=== PATIENT | female | born 2005 | race Two or more races ===

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

== ENCOUNTER 2024-01-16 02:05 | Emergency (ER) | payer OTHER, SELFPAY ==
--- NOTE | ~2024-01-16 | CT_ITS ---
EXAMINATION: CT HEAD WITHOUT CONTRAST CLINICAL INFORMATION: Headache COMPARISON: None available. TECHNIQUE: Contiguous axial imaging was performed from the skull base to vertex without intravenous administration of contrast. This CT examination was performed using dose optimization techniques as appropriate, variously including the following: *Automated exposure control *Adjustment of mA and/or kV according to patient size (this includes techniques or standardized protocols for targeted exams where dose is matched to indication/reason for exam; i.e. extremities or head) *Use of iterative reconstruction technique DLP: 622 mGy-cm FINDINGS: No intracranial hemorrhage, tumors or acute infarcts identified. Ventricles and sulci are normal in size and configuration. No focal parenchymal lesions of the brain or abnormal extra-axial fluid collections identified. The orbits and globes are normal in appearance. No extrarenal soft tissue inflammatory changes. No significant opacification of the visualized paranasal sinuses, mastoid air cells and middle ear cavities. CT/CT head/brain wo IV con IMPRESSION: Normal unenhanced CT of the head. Electronically signed by: Kyle Bruce MD 01/16/2024 06:16 AM PABLO
[2024-01-16 02:18] VITALS: BP 127/89; PULSE 78; RESP 20; TEMP 36.4; O2SAT 98; BMI 26.4
[2024-01-16 03:24] VITALS: BP 135/89; PULSE 86; RESP 14; TEMP 36.8; O2SAT 99
[2024-01-16] MEDS: Acetaminophen 325 MG TABLET 650 MG PO ×2 (03:32→06:44)
[2024-01-16] MEDS: Ondansetron ODT 4 MG TAB.RAPDIS TRANSLINGU (03:34)
[2024-01-16 04:33] VITALS: BP 120/63; PULSE 71; RESP 18; TEMP 36.7; O2SAT 99
--- NOTE | 2024-01-16 04:48 | ED.HA ---
HPI - Headache General Chief Complaint: Headache Stated Complaint: migraine Time Seen by Provider: 01/16/24 04:41 Source: patient Mode of arrival: ambulatory Limitations: no limitations History of Present Illness ED Provider: DR. Lloyd HPI Narrative: 18-year-old female history of migraine came in for 10 hours history of headache that started yesterday, headache is associated with nausea, no vomiting, no photophobia, no neck stiffness, no fever, no chills, patient while in the emergency department already started to feel improvement of her headache. No weakness, no numbness, no blurry vision. Related Data Previous Rx's ?Medication ?Instructions ?Recorded doxylamine succinate 25 mg tablet 25 mg PO BEDTIME PRN sleep #30 tabs 09/18/22 (Unisom (doxylamine)) vitamin with calcium 1 tab PO DAILY #90 tabs 09/18/22 no.72-iron 27 mg-folic acid 1 mg tablet ( Vitamins Plus Low Iron) pyridoxine (vitamin B6) 25 mg 25 mg PO TID #90 tabs 09/18/22 tablet metoclopramide HCl 5 mg tablet 5 mg PO QIDACHS PRN nausea and 10/17/22 (Reglan) vomiting #30 tabs Allergies Allergy/AdvReac Type Severity Reaction Status Date / Time Seasonal Allergies Allergy Intermediate Itchy Eyes Verified 01/16/24 02:21 Review of Systems Review of Systems: All other systems are reviewed and are negative Constitutional: Reports as per HPI and Reports no additional constitutional complaints Eyes: Reports as per HPI and Reports no additional eye complaints Reports system reviewed and no additional complaints, except as documented Cardiovascular: Reports as per HPI and Reports no additional cardiovascular complaints Respiratory: Reports as per HPI and Reports no additional respiratory complaints Gastrointestinal: Reports as per HPI and Reports no additional gastrointestinal complaints Genitourinary: Reports no additional female genitourinary complaints Musculoskeletal: Reports no additional musculoskeletal complaints Skin/Breast: Reports system reviewed and no additional complaints, except as docu Psychiatric: Reports no additional psychiatric complaints Endocrine: Reports no additional endocrine complaints Hematologic/Lymphatic: Reports no additional hematologic/lymphatic complaints Allergic/Immunologic: Reports no additional allergic/immunologic complaints Reports system reviewed and no additional complaints, except as documented and Reports Abnormal speech present PMFSH Past Medical History Medical History Adolescent , incidental Surgical History Hx of tonsillectomy Family History Family History Mother DM (diabetes mellitus) Father HTN (hypertension) Asthma Sister History of prediabetes Brother No problems noted. Son No problems noted. 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 Alcohol intake: never Patient Tobacco Use Status: Never used Tobacco Smoked in Last 30 Days: No Use of substances other than those prescribed or required for medical reasons: No Advance Directives: No Advance Directives Information Provided: No Do you have a plan to hurt others: No Plan Patient : No Current occupational status: unemployed Physical Exam Vital Signs: Vital Signs: Last Vital Signs Temp 98.2 F 01/16/24 06:24 Pulse 78 01/16/24 06:24 Resp 18 01/16/24 06:24 BP 108/57 L 01/16/24 06:24 Pulse Ox 99 01/16/24 06:24 O2 Del Method Room Air 01/16/24 06:24 BMI result Body Mass Index 26.4 Vital signs have been reviewed and appear to be correct. Blood pressure elevated. Heart rate normal. Respiratory rate normal. Temperature normal. Oxygen saturation normal. Appearance: Alert. Oriented X3. No acute distress. Head: Normal external exam. Normocephalic. Atraumatic. No Solomon signs noted. No raccoon eyes noted Eyes: PERRLA. EOMI. Conjunctiva and sclera normal. Eyelids normal. ENT: TM's Normal. Pharynx normal. Uvula midline. Moist mucous membranes. No trismus noted. No drooling noted. No muffled voice noted. Neck: Normal inspection. Neck supple. FROM. No adenopathy. Thyroid Normal. No meningeal signs. No neck mass noted. CVS: Normal heart rate and rhythm. Heart sound normal. No murmurs noted. Pulses normal throughout. Respiratory: No respiratory distress. Painless inspiration. Breath sounds normal. No wheezes/rales/rhonchi noted. Chest nontender. No accessory muscle usage noted or decreased air movement noted. Abdomen: Soft and nontender. Bowel sounds normal in all 4 quadrants. No distention noted. No organomegaly noted. No visible injury noted. Back: No CVA tenderness. Full range of motion noted. Skin: Skin warm and dry. Normal skin color. Normal skin turgor. No rashes/lesions/lacerations noted. Extremities: No lower extremity edema. Extremities exhibit normal range of motion. Extremities nontender. Neuro: Mental status: Normal attention, orientation, memory, and affect. Cranial nerves: Pupils are equal, round and reactive to light, EOMI, visual patterson are fall, face is symmetric, facial sensations are normal. Motor examination normal muscle tone, strength to 4 extremities. DTR are +2, planter's are flexor. Sensory exam; normal coordination, no ataxia, gait stable. Cerebellar exam: Spqlvi-wz-sdlu and suqc-zu-mzkh is normal. Extrapyramidal system: No tremors, no rigidity with normal facial expressions. Pronator drift not present Course Reevaluation(s) Reevaluation #1: headache has improved now headache is 1/10, patient received IV fluids/Benadryl /Zofran in the ED and feels significantly better. Normal neuro exam, head CT is unremarkable. UA is showing UTI patient has no dysuria, no frequency urination, was instructed to drink plenty of fluids Time: 06:58 Medications Administered Discontinued Medications Generic Name Dose Route Start Last Admin Trade Name Freq PRN Reason Stop Dose Admin Acetaminophen 650 mg 01/16/24 03:28 01/16/24 03:32 Acetaminophen 325 Mg Tablet PO 01/16/24 03:29 650 mg ONCE ONE Administration Acetaminophen 650 mg 01/16/24 06:38 01/16/24 06:44 Acetaminophen 325 Mg Tablet PO 01/16/24 06:39 650 mg ONCE ONE Administration Diphenhydramine HCl 25 mg 01/16/24 04:41 01/16/24 04:59 Diphenhydramine Hcl 50 Mg/Ml Vial IVPUSH 01/16/24 04:42 25 mg ONCE ONE Administration Sodium Chloride 1,000 mls @ 999 mls/hr 01/16/24 04:41 01/16/24 06:00 Ns IV 01/16/24 05:41 Infused .Q1H1M ONE Infusion Ondansetron HCl 4 mg 01/16/24 03:31 01/16/24 03:34 Ondansetron Odt 4 Mg Tab.Rapdis TRANSLINGU 01/16/24 03:32 4 mg ONCE ONE Administration Ondansetron HCl 4 mg 01/16/24 04:41 01/16/24 04:59 Ondansetron Hcl 4 Mg/2 Ml Vial IVPUSH 01/16/24 04:42 4 mg ONCE ONE Administration Medical Decision Making Differential Diagnosis Differential Diagnoses: The differential diagnosis associated with the presentation includes ( Migraine, intracranial bleed, tension headache.) Admission/Observation Consideration of admission/observation: Escalation of care including admission/observation considered Lab Data Labs: Lab Results 01/16/24 Range/Units 06:28 Urine Color Yellow Urine Appearance Clear Urine pH 6.5 (5.0-9.0) Ur Specific [place] <= 1.005 (1.005-1.025) Urine Protein Negative (Neg-Trace) mg/dL Urine Glucose (UA) Negative (Negative) mg/dL Urine Ketones Negative (Negative) mg/dL Urine Blood Negative (Negative) Urine Nitrite Negative (Negative) Ur Leukocyte Esterase Moderate (2+) H (Negative) Urine RBC 0-2 (0-2) /HPF Urine WBC 11-20 H (0-5) /HPF Ur Squamous Epith Cells 3-5 (0-2) /HPF Urine Bacteria Trace (None Seen) Hyaline Casts 0-2 (0-2) /LPF Urine Test NEGATIVE (NEGATIVE) Independent Interpretation I performed an independent interpretation of an: CT Scan ( Head CT: Normal unenhanced CT of the head.) Radiology Impression Discussion of test interpretation with radiology: I have reviewed the radiologist's reading. Discharge Plan Discharge Clinical Impression: Migraine Patient Disposition: Home, Self-Care Instructions: Migraine Headache (ED) Prescriptions: No Action metoclopramide HCl [Reglan] 5 mg tablet 5 mg PO QIDACHS PRN (Reason: nausea and vomiting) Qty: 30 0RF Rx Instructions: for nausea pyridoxine (vitamin B6) 25 mg tablet 25 mg PO TID Qty: 90 0RF Unisom (doxylamine) 25 mg tablet 25 mg PO BEDTIME PRN (Reason: sleep) Qty: 30 0RF Vitamin Plus Low Iron 27 mg iron- 1 mg tablet 1 tab PO DAILY Qty: 90 4RF Print Language: Sami
[2024-01-16] MEDS: 0.9 % Sodium Chloride 1,000 ML 999 ML IV (04:58)
[2024-01-16] MEDS: diphenhydrAMINE HCL 50 MG/ML VIAL 25 MG IVPUSH (04:59)
[2024-01-16] MEDS: ondansetron HCL 4 MG/2 ML VIAL IVPUSH (04:59)
[2024-01-16 06:24] VITALS: BP 108/57; PULSE 78; RESP 18; TEMP 36.8; O2SAT 99
[2024-01-16 06:35] LABS: Appearance Urine Clear; Color Urine Yellow; Glucose Urine UA Negative (Negative); Leukocyte Esterase Urine Moderate (2+) (Negative); Nitrite Urine Negative (Negative); PH 6.5 (5.0-9.0); Specific Gravity - Urine <= 1.005 (1.005-1.025); UMIC TRIGGER UACC YES; Urine Blood Negative (Negative); Urine Ketones Negative (Negative); Urine Protein Negative (Neg-Trace)
[2024-01-16 06:39] LABS: UPreg QC Valid YES; Urine Pregnancy NEGATIVE (NEGATIVE)
[2024-01-16 06:40] LABS: Bacteria Urine Trace (None Seen); Hyaline Casts Urine 0-2 /LPF (0-2); RBC Urine 0-2 /HPF (0-2); UACC Culture Trigger YES
[2024-01-16 07:03] VITALS: BP 108/57; PULSE 78; RESP 18; TEMP 36.8; O2SAT 99
== END 2024-01-16 07:04 | disposition home or self-care (01) ==
PROVIDERS: Emergency Provider Emergency Medicine
DX: G43.909 Migraine, unspecified, not intractable, without status migrainosus (principal)
CPT/HCPCS: 70450; 81001; 81025; 87086; 96361; 96374; 96375; 99285; J1200; J2405

== ENCOUNTER 2024-04-27 09:35 | Outpatient (AMB) | payer OTHER, SELFPAY ==
--- NOTE | 2024-04-27 09:50 | A.OFFPC_ITS ---
Vital Signs 04/27/24 09:52 Height 5 ft 1 in Weight 146 lb 8 oz BMI 27.7 BP 130/72 Blood Pressure Location Lt brachial Position Sitting Pulse 76 Pulse Source Pulse Oximeter Temp 97.1 F Temp Source Temporal Artery Scan Pulse Oximetry (%) 99 Oxygen Delivery Method Room Air Intake Visit Reasons: establish care/PPD Plant Intake Note: Patient is a new patient here to establish care for HTN. Transferring care from [facility]. Medical records have been requested and have not received. Check Writing Machine Operator Required: No Dirt Bike Mechanic: Not Required per policy Accompanied by: Self / Same As Patient Allergies Seasonal Allergies Allergy (Intermediate, Verified 04/27/24 10:02) Itchy Eyes Medication List - Last Reconciled 04/27/24 by Tiffanie Yanez PA-C No Known Home Meds Tobacco use date assessed: 04/27/24 Dental Screening Dental Screen Date: 04/22/24 HPI establish care/PPD Plant HPI Details 19 year old female coming to the office for the first time. Negative PHQ and TRINIDAD. 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 pap smear: Not up-to-date referral placed to gynecology today [facility] Medical History Adolescent , incidental Surgical History Hx of tonsillectomy Family History Mother DM (diabetes mellitus) Father HTN (hypertension) Asthma Sister History of prediabetes Brother No problems noted. Son No problems noted. Social History Household Members: Family and Children Housing: Apartment Are you a primary healthcare management to a significant other at home: Yes Alcohol intake: never Patient Tobacco Use Status: Never used Tobacco e-Cigarette/Vaping Use: Never Used Second Hand Smoke Exposure: No service: No Current occupational status: unemployed Cognitive needs: No Hearing needs: No Vision needs: No Female Reproductive History Menstrual control method: none Total pregnancies: 3 Full term: 2 Questionnaire PHQ-9 Over the last 2 weeks, how often have you been bothered by any of the following problems? 1. Little interest or pleasure in doing things: not at all 2. Feeling down, depressed, or hopeless: not at all 3. Trouble falling or staying asleep, or sleeping too much: not at all 4. Feeling tired or having little energy: not at all 5. Poor appetite or overeating: not at all 6. Feeling bad about yourself - or that you are a failure or have let yourself or your family down: not at all 7. Trouble concentrating on things, such as reading the newspaper or watching television: not at all 8. Moving or speaking so slowly that other people could have noticed. Or the opposite - being so fidgety or restless that you have been moving around a lot more than usual: not at all 9. Thoughts that you would be better off or of hurting yourself in some way: not at all Total score: 0 Depression Screening Interpretation: Negative Depression Screening Done: Yes Source: Developed by Drs. Ramiro Montoya, Chula Petit, Jimmy Champion and colleagues, with an educational magdaleno from [email or web address]. Thrive Questionnaire Date Thrive assessed: 04/27/24 I am a: Patient What is your living situation today?: I have a steady place to live Within the past 12 months, did the food you bought not last and you didn't have the money to get more?: Never true Within the past 12 months, did you worry whether your food would run out before you got money to buy more?: Never true Do you have trouble paying for medicines?: No Do you have trouble getting transportation to medical appointments?: No Do you have trouble paying your heating and electricity bill?: No Do you have trouble taking care of your child, family member or friend?: No Do you have trouble with day-to-day activities such as bathing, preparing meals, shopping, managing finances, etc.?: No Are you currently unemployed and looking for a job?: No Are you interested in more education?: No Please select the resources that you would like help with: None Currently or been in a relationship where the following occur: No concerns reported THRIVE Score: 0 AUDIT C Alcohol Use Questionnaire (AUDIT-C) 1. How often do you have a drink containing alcohol?: Never Total Score: 0 TRINIDAD-7 AMB Questionnaire TRINIDAD-7 Date TRINIDAD - 7 assessed: 04/27/24 Feeling nervous, anxious, or on edge: 0 = Not at all Not being able to stop or control worryin = Not at all Worrying too much about different things: 0 = Not at all Trouble relaxin = Not at all Being so restless that it is hard to sit still: 0 = Not at all Becoming easily annoyed or irritable: 0 = Not at all Feeling afraid as if something awful might happen: 0 = Not at all Total TRINIDAD-7 score (0-4 normal; 5-9 mild; 10-14 moderate; 15-21 severe): 0 Source: Developed by Drs. Ramiro Montoya, Chula Petit, Jimmy Champion and colleagues, with an educational magdaleno from [email or web address]. Review of Systems Const Denies body aches, Denies chills, Denies fever(s), Denies headache(s) and Denies poor appetite Eyes Reports no additional complaints ENT Denies dysphagia, Denies dizziness, Denies headache(s) and Denies odynophagia Card Denies chest pain, Denies syncope, Denies edema, Denies irregular heart rhythm, Denies lightheadedness and Denies dyspnea Resp Denies cough and Denies dyspnea GI Denies abdominal pain, Denies constipation, Denies dysphagia, Denies diarrhea, Denies nausea, Denies odynophagia and Denies vomiting Reports no additional complaints Musc Reports no additional complaints and Denies abnormal gait Skin/Breast Reports system reviewed and no additional complaints, except as documented Neuro Denies abnormal gait, Denies dizziness, Denies syncope and Denies headache(s) Psych Reports no additional complaints Physical exam (Primary Care) Vital Signs: Last Vital Signs Temp 97.1 F 04/27/24 09:52 Pulse 76 04/27/24 09:52 BP 130/72 04/27/24 09:52 Pulse Ox 99 04/27/24 09:52 Oxygen Delivery Method Room Air 04/27/24 09:52 BMI result Body Mass Index 27.7 Tobacco/Smoking Status: Tobacco use Status Tobacco use date assessed 04/27/24 04/27/24 09:55 Patient Tobacco Use Status Never used Tobacco 04/27/24 09:50 e-Cigarette/Vaping Use Never Used 04/27/24 09:55 PHQ-9: PHQ-9 Score PHQ-9: Total score 0 04/27/24 09:55 Depression Screening Interpretation: Negative Thrive Assessment: Date of Thrive Assessment Date Thrive assessed 04/27/24 04/27/24 09:55 Currently or been in a relationship where the following occur: No concerns reported Const General: cooperative, healthy appearing, comfortable and no acute distress Orientation/consciousness: patient oriented x3 HENMT Head: Yes normocephalic Ears: hearing grossly normal bilaterally General nose exam: Normal external nose present Face and sinus: Yes normal facial exam and Yes sinuses nontender Mouth: Normal oral and palatal mucosa present and tongue normal Throat: Yes posterior oropharynx normal Eyes General: appearance normal, both eyes and all related structures Conjunctivae: conjunctivae normal Pupils: Equal, round and reactive pupils present EOM: EOMs intact bilaterally and No Nystagmus present Neck Neck: Yes full ROM and Yes no lymphadenopathy Chest Chest palpation & inspection: normal inspection of the chest Resp Effort & Inspection: normal respiratory effort Auscultation: clear to auscultation bilaterally, no crackles, no rales, no rhonchi and no wheezes Cardio Rate: regular rate Rhythm: regular rhythm Peripheral pulses: radial pulses present and dorsalis pedis present GI Inspection: Yes normal to inspection and No Abdominal wall edema Palpation (GI): Soft to palpation, not firm and nontender Auscultation: normal bowel sounds Rectal Exam - Female: deferred General: Yes no CVA tenderness Back/Spine/Pelvis Back: no CVA tenderness Skin General skin exam: no rashes or lesions noted Neuro General: patient oriented x3 Cranial nerves: Yes Equal, round and reactive pupils present, Yes Midline tongue present, Yes Ability to bilaterally elevate shoulders present and No Nystagmus present Gait exam (Neuro): Normal gait present Extrem General: Yes normal to inspection, Yes full ROM and No edema Psych Speech and movement: Normal speech and movement present Affect: normal affect Attitude: cooperative Insight: Good insight present (Psych) Judgement: Good judgement present (Psych) Coding Level of Care Code New Pt Prev Care [id number] Diagnoses Annual physical exam Z00.00 Insomnia G47.00 Assessment & Plan Assessment & Plan (1) Annual physical exam: Code(s): Z00.00 - Encounter for general adult medical examination without abnormal findings Category: Medical Plan: Patient tells us today she believes she is up to date on all recommended vaccinations for her age. She has not had a pap smear in the past and referral was placed to gynecology today. I ordered for updated blood work and plan to follow up yearly unless patient has new concerns or if warranted by blood work results. (2) Insomnia: Code(s): G47.00 - Insomnia, unspecified Category: Medical Plan: Patient having occasional difficulty sleeping and returning back to sleep. Plan to start on hydroxyzine as needed. Plan This note was constructed using voice recognition software. While every effort has been made to ensure accuracy and manager e learning, still areas may have been included sometimes these areas may affect the content or meeting of the given symptoms. Total time spent caring for the patient today was 30 minutes. This includes time spent before the visit reviewing the chart, time spent during the visit, and time spent after the visit and documentation. Orders: Orders Comprehensive Met. Panel Today Z00.00 - Encounter for general adult medical examination without abnormal findings Complete Blood Count Auto Diff Today Z00.00 - Encounter for general adult medical examination without abnormal findings TSH reflex Free T4 Today Z00.00 - Encounter for general adult medical examination without abnormal findings Vitamin D 25-OH Total Today Z00.00 - Encounter for general adult medical examination without abnormal findings T Spot TB Today Z00.00 - Encounter for general adult medical examination without abnormal findings Vitamin B12 and Folate Today Z00.00 - Encounter for general adult medical examination without abnormal findings Referrals [facility] TECHNICIAN Referral Z12.4 - Encounter for screening for malignant neoplasm of cervix Medications: New hydroxyzine HCl 25 mg PO BEDTIME PRN 30 tabs 0RF sleep
[2024-04-27 09:52] VITALS: BP 130/72; PULSE 76; TEMP 36.2; O2SAT 99; BMI 27.7
== END 2024-04-27 10:19 | disposition home or self-care (01) ==
DX: Z00.00 Encounter for general adult medical examination without abnormal findings (principal); G47.00 Insomnia, unspecified

== ENCOUNTER → 2024-04-27 09:35 | Outpatient (BNVA) | payer OTHER, SELFPAY | DX: Z00.00 Encounter for general adult medical examination without abnormal findings (principal); G47.00 Insomnia, unspecified | CPT/HCPCS: 99385 ==

== ENCOUNTER 2024-04-28 08:38 | Outpatient (REF) | payer OTHER, SELFPAY ==
[2024-04-28 09:12] LABS: MANUAL DIFF FLAG NO
[2024-04-28 09:56] LABS: Basophils Percent Auto 0.4 % (0-2); Eosinophils Absolute Auto 0.1 X10*3/uL (0.0-0.4); Eosinophils Percent Auto 1.9 % (0-4); Hematocrit 41.7 % (37.0-47.0); Hemoglobin 13.8 g/dl (12.0-16.0); Imm Gran Abs Auto 0.02 X10*3/uL (0.00-0.03); Imm Gran Pct Auto 0.4 % (0.0-0.4); Lymphocytes Percent Auto 36.8 % (20-40); Mean Corpuscular HGB Conc 33.1 g/dl (31.0-35.0); Mean Corpuscular Hemoglobin 27.8 pg (27.0-33.0); Mean Corpuscular Volume 84.1 fL (80.0-98.0); Mean Platelet Volume 9.7 fL (9.4-12.3); Monocytes Absolute Auto 0.4 X10*3/uL (0.1-1.2); Monocytes Percent Auto 7.6 % (2-11); Neutrophils Absolute Auto 2.8 x10*3/uL (2.0-8.3); Neutrophils Percent Auto 52.9 % (45-73); Platelet Count 337 X10*3/uL (160-400); Red Blood Count 4.96 X10*6/uL (4.20-5.50); Red Cell Distribution Width 13.7 % (11.0-16.0); White Blood Count 5.4 X10*3/uL (4.8-10.8)
[2024-04-28 10:42] LABS: Alanine Aminotransferase 15 U/L (0-31); Albumin Level 4.2 g/dL (3.5-5.0); Alkaline Phosphatase 71 U/L (39-117); Anion Gap 10 (12-20); Aspartate Amino Transferase 17 U/L (5-31); Bilirubin Total 0.4 mg/dL (0.0-1.0); Blood Urea Nitrogen 8 mg/dL (9-16); Calcium 9.1 mg/dL (8.4-10.2); Carbon Dioxide 26 mmol/L (22-29); Chloride 108 mmol/L (96-108); Estimated Glomerular Filt Rate > 60; Glucose Random 93 mg/dL (60-115); Potassium 3.8 mmol/L (3.3-5.1); Sodium 140 mmol/L (135-145); Total Protein 7.3 g/dL (6.5-8.0)
[2024-04-28 10:48] LABS: TSH reflex Free T4 0.48 uIU/mL (0.32-4.0); Vitamin D 25-OH Total 10.4 ng/mL (>30)
[2024-04-28 10:55] LABS: Folate 10.4 ng/mL (> or = 4.0); Vitamin B12 223 pg/mL (200-900)
[2024-05-01 11:39] LABS: TS Negative Control Passed; TS Panel A 0; TS Panel B 1; TS Positive Control Passed; TSpotTB Negative (Negative)
== END 2024-04-28 08:39 | disposition home or self-care (01) ==
LOC: HO.LAB 08:38
DX: Z00.00 Encounter for general adult medical examination without abnormal findings (principal)
CPT/HCPCS: 36415; 80053; 82306; 82607; 82746; 84443; 85025; 86481